=== PATIENT | female | born 1990 | race Caucasian/White ===

== ENCOUNTER 2016-09-24 16:39 | Emergency (ER) | payer OTHER ==
[~2016-09-24] VITALS: Ht 167.6 cm; Wt 103.0 kg
[~2016-09-24 16:39] MED LIST: GABA-113 PO; IBUP-1450 PO; ONDA4TAB4 PO; SPR28 PO
[2016-09-24 16:41] VITALS: TEMP 36.9; Ht 167.6 cm; Wt 103.0 kg
[2016-09-24] MEDS ORDERED: TRAZ100T29 PO (17:03)
[2016-09-24] MEDS ORDERED: ERGO500037 PO (17:03)
[2016-09-24] MEDS ORDERED: MOME100A INH (17:03)
[2016-09-24] MEDS ORDERED: OXYC-57 PO (17:03)
[2016-09-24] MEDS ORDERED: TAMS0.4C38 PO (17:03)
[2016-09-24] MEDS ORDERED: HYDR25CA PO (17:03)
[2016-09-24] MEDS ORDERED: MONT1TAB5 PO (17:03)
[2016-09-24] MEDS ORDERED: SERT-234 PO (17:03)
[2016-09-24] MEDS ORDERED: NAPR-1169 PO (17:03)
--- NOTE | 2016-09-24 17:03 | EMERGENCY ROOM VISIT NOTE ---
History Report prepared by Darwin: Oracio Vásquez Under the Supervision of: Dr. Jacoby Reyes M.D. First contact with patient: 16:46 Chief Complaint: KIDNEY STONE Stated Complaint: KIDNEY STONE AND FLUID IN LUNGS History of Present Illness The patient is a 26 year old female who presents to the Emergency Room with complaints of worsening right sided flank pain that radiates down to groin. She rates this pain an 8/10 in intensity. This pain started 4 days ago. The patient was evaluated in the [facility] ED when pain first started. She was found to have a 4 mm kidney stone at this time. The patient was evaluated by Dr. Campos ( Family Medicine) yesterday for persistent pain. A repeat CT scan was performed today which the patient states showed "1 mm increase in size of kidney stone." Upon review, the CT from [facility] today shows increasing small bilateral pleural effusion and unchanged appearance and position of distal right ureteral calculus. The patient mentions that she has been experiencing persistent shortness of breath which she believes is caused by her chronic asthma. The patient denies prior kidney stones. She adds that she was sent to the ED today for direct admission. Source of History: patient, other ([facility] ) Onset: 4 days ago Position: other (Right flank ) Symptom Intensity: 8/10 Timing: worsening Modifying Factors (Relieving): other (None) Associated Symptoms: + SOB Review of Systems All systems have been listed, reviewed, and are negative other than those previously mentioned. Please see Additional Medical History Sheet. Past Medical & Surgical Medical Problems: (1) Bronchitis (2) Pneumonia Surgical Problems: (1) S/P tonsillectomy Family History FH: diabetes mellitus FH: hypertension FH: kidney disease Social History Smoking Status: Never Smoker Smokeless Tobacco Use: No Alcohol Use: none Marital Status: Housing Status: lives with family Occupation Status: employed Current/Historical Medications Scheduled Ergocalciferol (Vitamin D 13377 Unit), 50,000 UNIT PO 2XWK Hydroxyzine Pamoate (Vistaril), 2 MG PO QID Montelukast Sodium (Montelukast Sodium), 10 MG PO DAILY Naproxen (Naprosyn), 500 MG PO BID Sertraline (Zoloft), 100 MG PO DAILY Tamsulosin Hcl (Flomax), 0.4 MG PO DAILY Trazodone Hcl (Trazodone), 150 MG PO HS Scheduled PRN Mometasone Furoate-Formoterol (Dulera 100/5 Mcg), 2 PUFFS INH BID PRN for SOB/ Wheezing Oxycodone/Acetaminophen 5MG/325MG (Percocet 5MG/325MG), 1 TABLET PO Q6H PRN for Pain Allergies Coded Allergies: Penicillins (Unverified Allergy, Intermediate, Swelling, 05/04/14) Uncoded Allergies: AMOX (Allergy, Severe, GI UPSET & SWELLING, 05/04/14) Physical Exam Vital Signs Date Time Temp Pulse Resp B/P Pulse Ox O2 Delivery O2 Flow Rate FiO2 09/24/16 20:13 81 16 118/68 98 09/24/16 16:41 36.9 86 16 120/74 96 Room Air Physical Exam GENERAL: Patient awake, alert, oriented x 3. Patient follows commands. Patient does not appear toxic. Patient is adequately hydrated and well- nourished. SKIN: No erythema, pallor, cyanosis or rash HEENT: Normal head, pupils equal, reactive to light and accommodation. LUNGS: Clear to auscultation. No wheezes, no rales, no rhonchi. HEART: No murmurs. No gallops. No rubs ABDOMEN: Obese. No masses, no rebound, no hepatomegaly or splenomegaly. BACK: Slight tenderness over right CVA area. EXTREMITIES: No signs of trauma or infection. NEUROLOGIC: Cranial nerves II-XII within normal limits. No gross motor sensory function deficits. Medical Decision & Procedures ER Provider Diagnostic Interpretation: [facility] CT abdomen + Pelvis with + without Contrast: Report: The liber, gallbladder, spleen, pancreas, and adrenal glands demonstrate no abnormality. No solid renal lesions identified. A 4 mm calculus seen at distal right ureter, just proximal to the ureterovesical junction, appears to be unchanged in position from the 09/20/2016 examination. Mild to moderate right hydronephrosis is unchanged. No left-sided calculi are observed. The urinary bladder and reproductive organs demonstrate no acute abnormality. Large and small bowel demonstrate no evidence of obstruction and no gross evidence of wall thickening. The appendix is unremarkable. No free intraperitoneal air or fluid is identified. Vascular structures demonstrate scattered atherosclerotic calcification, but are otherwise unremarkable. No abnormally enlarged intra-abdominal lymph nodes are identified. Osseous structures demonstrate no lytic or blastic lesion. No consolidation is identified at either lung base. There are small bilateral pleural effusions, increased from 09/20/2016. Impression: 1. Unchanged appearance and position of distal right ureteral calculus, as well as mild to moderate right hydronephrosis. 2. Increasing small bilateral pleural effusions. Dictated by: Raad Castellanos M.D. X ray results are stated below per my interpretation and the radiologist's interpretation. CHEST 2 VIEWS ROUTINE CLINICAL HISTORY: Bilateral pleural effusions seen on outside CT. COMPARISON STUDY: No previous studies for comparison. FINDINGS: There is no pneumothorax or pleural effusion. There is no evidence of pulmonary edema. Cardiac size is normal. No pneumothorax or pleural effusion is identified. IMPRESSION: No acute cardiopulmonary findings. No pleural effusions identified. Electronically signed by: Wilder Tierney M.D. 09/24/2016 6:44 PM Dictated Date/Time: 09/24/2016 6:43 PM KUB CLINICAL HISTORY: Right flank pain. Right kidney stone shown on outside CT. COMPARISON STUDY: CT of the abdomen and pelvis May 04, 2014. FINDINGS: Contrast within the collecting systems, ureters and bladder from recent contrast-enhanced CT. There is no left hydronephrosis. There is mild right hydronephrosis. No ureteral calculus is identified although sensitivity is diminished on this exam due to contrast. The right nephrogram is slightly delayed. Bowel gas pattern is normal. IMPRESSION: Mild right collecting system dilatation. No ureteral calculus identified although sensitivity diminished given contrast within the ureter from recent contrast-enhanced CT. Right nephrogram mildly delayed. Electronically signed by: Wilder Tierney M.D. 09/24/2016 6:46 PM Dictated Date/Time: 09/24/2016 6:45 PM Laboratory Results 09/24/16 17:50 Red Blood Count 4.58, Mean Corpuscular Volume 78.8, Mean Corpuscular Hemoglobin 25.8, Mean Corpuscular Hemoglobin Concent 32.7, Mean Platelet Volume 8.5, Neutrophils (%) (Auto) 57.5, Lymphocytes (%) (Auto) 34.5, Monocytes (%) (Auto) 5.8, Eosinophils (%) (Auto) 1.5, Basophils (%) (Auto) 0.4, Neutrophils # (Auto) 3.90, Lymphocytes # (Auto) 2.34, Monocytes # (Auto) 0.39, Eosinophils # (Auto) 0.10, Basophils # (Auto) 0.03 09/24/16 17:50 Test 09/24/16 17:50 White Blood Count 6.78 K/uL (4.8-10.8) Red Blood Count 4.58 M/uL (4.2-5.4) Hemoglobin 11.8 g/dL (12.0-16.0) Hematocrit 36.1 % (37-47) Mean Corpuscular Volume 78.8 fL (80-100) Mean Corpuscular Hemoglobin 25.8 pg (25-34) Mean Corpuscular Hemoglobin Concent 32.7 g/dl (32-36) Platelet Count 342 K/uL (130-400) Mean Platelet Volume 8.5 fL (7.4-10.4) Neutrophils (%) (Auto) 57.5 % Lymphocytes (%) (Auto) 34.5 % Monocytes (%) (Auto) 5.8 % Eosinophils (%) (Auto) 1.5 % Basophils (%) (Auto) 0.4 % Neutrophils # (Auto) 3.90 K/uL (1.4-6.5) Lymphocytes # (Auto) 2.34 K/uL (1.2-3.4) Monocytes # (Auto) 0.39 K/uL (0.11-0.59) Eosinophils # (Auto) 0.10 K/uL (0-0.5) Basophils # (Auto) 0.03 K/uL (0-0.2) RDW Standard Deviation 45.7 fL (36.4-46.3) RDW Coefficient of Variation 15.9 % (11.5-14.5) Immature Granulocyte % (Auto) 0.3 % Immature Granulocyte # (Auto) 0.02 K/uL (0.00-0.02) Urine Color YELLOW Urine Appearance CLEAR (CLEAR) Urine pH 7.0 (4.5-7.5) Urine Specific [place] > 1.045 (1.000-1.030) Urine Protein NEG (NEG) Urine Glucose (UA) NEG (NEG) Urine Ketones NEG (NEG) Urine Occult Blood TRACE (NEG) Urine Nitrite NEG (NEG) Urine Bilirubin NEG (NEG) Urine Urobilinogen NEG (NEG) Urine Leukocyte Esterase NEG (NEG) Urine WBC (Auto) 1-5 /hpf (0-5) Urine RBC (Auto) 5-10 /hpf (0-4) Urine Hyaline Casts (Auto) 0 /lpf (0-5) Urine Epithelial Cells (Auto) 20-30 /lpf (0-5) Urine Bacteria (Auto) NEG (NEG) Urine Test NEG (NEG) Anion Gap 5.0 mmol/L (3-11) Est Creatinine Clear Calc Drug Dose 109.7 ml/min Estimated GFR () 96.5 Estimated GFR (Non- 83.2 BUN/Creatinine Ratio 15.7 (10-20) Calcium Level 9.0 mg/dl (8.5-10.1) Laboratory results as stated above per my review. Medications Administered Medications (Trade) Dose Ordered Sig/Cassy Route Start Time Stop Time Status Last Admin Dose Admin Acetaminophen/ Hydrocodone Bitart ([place] 5/325 Tab) 1 tab ONE ONCE PO 09/24/16 20:00 09/24/16 20:01 DC 09/24/16 20:07 1 TAB Acetaminophen/ Hydrocodone Bitart ([place] 5/325mg Home Pack) 1 homepack UD ONCE PO 09/24/16 20:00 09/24/16 20:01 DC 09/24/16 20:07 1 HOMEPACK ED Course 1645: Past medical records reviewed. The patient was evaluated in room C9. A complete history and physical examination was performed. 1723: Discussed the patient's case with Dr. Davila (Urology). He is agreeable with the treatment plan. He requested a KUB and directing the patient to follow up in the office tomorrow. 2000: Ordered Acetaminophen/Hydrocodone Bitart 1 homepack PO, Acetaminophen/ Hydrocodone Bitart 1 tablet PO. 1950: Upon reevaluation, the patient appeared to have improvement of her symptoms. I discussed today's findings with the patient and her mother. They verbalized agreement of the treatment plan. She was discharged home. Medical Decision Nurses notes reviewed. Medical history sheet reviewed. Differential diagnosis includes but is not limited to: Ureteral calculus, bilateral pleural effusion, UTI, pyelonephritis, hydronephrosis. The patient was sent here from [place] with her CT revealing a stone and hydronephrosis. There is also bilateral small pleural effusions. The patient is having no respiratory symptoms. Blood work urinalysis and regular x-rays were performed here. Please see above. On chest x-ray she has no evidence of a pleural effusion. White count is normal. She does have some hematuria. KUB reveals slight dilatation of her kidney. I discussed care with Dr. Davila over the phone. The patient's to follow-up in the urology office tomorrow. The patient may require lithotripsy or some other intervention for removing the stone. I believe the patient is safe to return home tonight. Consults Time Called: 1703 Consulting Physician: Dr. Davila (Urology) Returned Call: 1723 Discussed the patient's case with Dr. Davila (Urology). He is agreeable with the treatment plan. He requested a KUB and directing the patient to follow up in the office tomorrow. Impression Primary Impression: Renal colic Additional Impression: Hydronephrosis Scribe Attestation The scribe's documentation has been prepared under my direction and personally reviewed by me in its entirety. I confirm that the note above accurately reflects all work, treatment, procedures, and medical decision making performed by me. Departure Information Dispostion Home / Self-Care Referrals Ashly Chand (PCP) Isaak Davila MD, Urology Forms HOME CARE DOCUMENTATION FORM, IMPORTANT VISIT INFORMATION Patient Instructions ED Stone Renal W Colic, My [facility] Additional Instructions Follow-up with Dr. Pool's office tomorrow at 1:15. One hydrocodone every 4 hours as needed for moderate to severe pain. 600 mg ibuprofen every 6 hours until pain resolves. Drink extra fluids. Problem Qualifiers
[2016-09-24 18:43] LABS: BASO % 0.4 %; BASO ABS # 0.03 K/uL (0-0.2); COMPLETE YES; EOS % 1.5 %; HEMATOCRIT 36.1 % (37-47); IG% 0.3 %; LYMPH % 34.5 %; LYMPH ABS # 2.34 K/uL (1.2-3.4); MEAN CELL VOLUME 78.8 fL (80-100); MEAN CORPUSCULAR HEMOGLOBIN 25.8 pg (25-34); MEAN CORPUSCULAR HGB CONC 32.7 g/dl (32-36); MEAN PLATELET VOLUME 8.5 fL (7.4-10.4); MONO % 5.8 %; NEUT % 57.5 %; PLATELET COUNT 342 K/uL (130-400); RED BLOOD COUNT 4.58 M/uL (4.2-5.4); WHITE BLOOD COUNT 6.78 K/uL (4.8-10.8)
--- NOTE | 2016-09-24 18:46 | DIAGNOSTIC IMAGING REPORT ---
CHEST 2 VIEWS ROUTINE CLINICAL HISTORY: Bilateral pleural effusions seen on outside CT. COMPARISON STUDY: No previous studies for comparison. FINDINGS: There is no pneumothorax or pleural effusion. There is no evidence of pulmonary edema. Cardiac size is normal. No pneumothorax or pleural effusion is identified. IMPRESSION: No acute cardiopulmonary findings. No pleural effusions identified. Electronically signed by: Wilder Tierney M.D. 09/24/2016 6:44 PM Dictated Date/Time: 09/24/2016 6:43 PM
[2016-09-24 18:47] LABS: URINE APPEARANCE CLEAR (CLEAR); URINE BILIRUBIN NEG (NEG); URINE COLOR YELLOW; URINE EPITHELIAL CELL AUTO 20-30 /lpf (0-5); URINE NITRITE NEG (NEG); URINE SPECIFIC GRAVITY > 1.045 (1.000-1.030); UROBILINOGEN NEG (NEG); ZZUR CULT IF INDIC CLEAN CATCH NO
[2016-09-24 18:48] LABS: MANUAL MICROSCOPIC REQUIRED? NO; REVIEW REQ? NO
--- NOTE | 2016-09-24 18:48 | DIAGNOSTIC IMAGING REPORT ---
KUB CLINICAL HISTORY: Right flank pain. Right kidney stone shown on outside CT. COMPARISON STUDY: CT of the abdomen and pelvis May 04, 2014. FINDINGS: Contrast within the collecting systems, ureters and bladder from recent contrast-enhanced CT. There is no left hydronephrosis. There is mild right hydronephrosis. No ureteral calculus is identified although sensitivity is diminished on this exam due to contrast. The right nephrogram is slightly delayed. Bowel gas pattern is normal. IMPRESSION: Mild right collecting system dilatation. No ureteral calculus identified although sensitivity diminished given contrast within the ureter from recent contrast-enhanced CT. Right nephrogram mildly delayed. Electronically signed by: Wilder Tierney M.D. 09/24/2016 6:46 PM Dictated Date/Time: 09/24/2016 6:45 PM
[2016-09-24 19:02] LABS: BUN/CREATININE RATIO 15.7 (10-20); CREATININE 0.95 mg/dl (0.60-1.20); POTASSIUM 4.3 mmol/L (3.5-5.1)
[2016-09-24] MEDS ORDERED: NORCO 5/325MG HOME PACK PO ONE (20:00)
[2016-09-24] MEDS ORDERED: HYDROCODONE/ACETAMOPHEN 5/325MG TAB PO ONE (20:00)
[2016-09-24 20:13] VITALS: BP 118/68; PULSE 81; O2SAT 98
== END 2016-09-24 20:14 | disposition home or self-care (01) ==
LOC: C.EDB 16:40 → C.EDC 20:14
DX: N23 Unspecified renal colic (principal); N13.30 Unspecified hydronephrosis; Z83.3 Family history of diabetes mellitus; Z82.49 Family history of ischemic heart disease and other diseases of the circulatory system

== ENCOUNTER → 2016-09-25 | Outpatient (CLI) | payer OTHER ==
[~2016-09-25] MED LIST changes: +ERGO500037 PO; +HYDR25CA PO; +MOME100A INH; +MONT1TAB5 PO; +NAPR-1169 PO; +OXYC-57 PO; +SERT-234 PO; +TAMS0.4C38 PO; +TRAZ100T29 PO
--- NOTE | 2016-09-25 14:57 | DIAGNOSTIC IMAGING REPORT ---
KUB CLINICAL HISTORY: Nephrolithiasis. COMPARISON STUDY: KUB September 24, 2016. FINDINGS: Note is made of a 5 mm irregular calcification within the right hemipelvis. This was obscured on prior exam due to contrast within the right ureter and bladder. There may be a small amount of residual contrast within the bladder. The contrast within the right collecting system is no longer visualized. Bowel gas pattern is normal. IMPRESSION: 5 mm irregular calcification within the right hemipelvis which could reflect a distal right ureteral calculus. Electronically signed by: Wilder Tierney M.D. 09/25/2016 2:55 PM Dictated Date/Time: 09/25/2016 2:53 PM
== END | disposition home or self-care (01) ==
LOC: C.LAB 14:25
PROVIDERS: ATTEND Urology
DX: N20.0 Calculus of kidney (principal)

== ENCOUNTER → 2017-05-28 | Outpatient (CLI) | payer OTHER ==
[~2017-05-28] MED LIST changes: -GABA-113 PO; -IBUP-1450 PO; +INSPMPHMLG; -NAPR-1169 PO; +NAPR-22 PO; +NVLNI SQ; -ONDA4TAB4 PO; +PRENTAB26 PO; -SPR28 PO
[2017-05-28 17:14] LABS: BASO % 0.1 %; BASO ABS # 0.01 K/uL (0-0.2); EOS % 0.6 %; EOS ABS # 0.05 K/uL (0-0.5); HEMATOCRIT 34.1 % (37-47); HEMOGLOBIN 11.4 g/dL (12.0-16.0); IG# 0.01 K/uL (0.00-0.02); LYMPH % 27.1 %; LYMPH ABS # 2.24 K/uL (1.2-3.4); MEAN CELL VOLUME 77.5 fL (80-100); MEAN CORPUSCULAR HEMOGLOBIN 25.9 pg (25-34); MEAN CORPUSCULAR HGB CONC 33.4 g/dl (32-36); MEAN PLATELET VOLUME 8.6 fL (7.4-10.4); MONO % 7.9 %; MONO ABS # 0.65 K/uL (0.11-0.59); NEUT % 64.2 %; NEUT ABS # 5.31 K/uL (1.4-6.5); PLATELET COUNT 324 K/uL (130-400); RED CELL DISTRIBUTION WIDTH CV 15.7 % (11.5-14.5); RED CELL DISTRIBUTION WIDTH SD 44.7 fL (36.4-46.3); WHITE BLOOD COUNT 8.27 K/uL (4.8-10.8)
== END | disposition home or self-care (01) ==
LOC: C.LAB1850 16:04
PROVIDERS: ATTEND Obstetrics & Gynecology
DX: O99.280 Endocrine, nutritional and metabolic diseases complicating pregnancy, unspecified trimester (principal); Z3A.00 Weeks of gestation of pregnancy not specified

== ENCOUNTER → 2017-05-28 | Outpatient (CLI) | payer OTHER | END | disposition home or self-care (01) | LOC: C.PAPS 09:19 | PROVIDERS: ATTEND Obstetrics & Gynecology | DX: Z34.01 Encounter for supervision of normal first pregnancy, first trimester (principal); Z3A.00 Weeks of gestation of pregnancy not specified ==

== ENCOUNTER → 2017-06-25 | Outpatient (CLI) | payer OTHER ==
[~2017-06-25] MED LIST changes: -INSPMPHMLG; +NAPR-1169 PO; -NAPR-22 PO; -NVLNI SQ; -PRENTAB26 PO
== END | disposition home or self-care (01) ==
LOC: C.LAB1850 16:20
PROVIDERS: ATTEND Obstetrics & Gynecology
DX: O99.280 Endocrine, nutritional and metabolic diseases complicating pregnancy, unspecified trimester (principal)

== ENCOUNTER → 2017-07-30 | Outpatient (CLI) | payer OTHER | END | disposition home or self-care (01) | LOC: C.LAB1850 15:49 | PROVIDERS: ATTEND Obstetrics & Gynecology | DX: O99.280 Endocrine, nutritional and metabolic diseases complicating pregnancy, unspecified trimester (principal); Z34.02 Encounter for supervision of normal first pregnancy, second trimester ==

== ENCOUNTER → 2017-08-15 | Outpatient (CLI) | payer OTHER | END | disposition home or self-care (01) | LOC: C.LAB1850 11:27 | PROVIDERS: ATTEND Obstetrics & Gynecology | DX: O28.1 Abnormal biochemical finding on antenatal screening of mother (principal) ==

== ENCOUNTER → 2017-08-19 | Outpatient (CLI) | payer OTHER | END | disposition home or self-care (01) | LOC: C.LAB1850 14:05 | PROVIDERS: ATTEND Obstetrics & Gynecology | DX: R30.9 Painful micturition, unspecified (principal); Z86.39 Personal history of other endocrine, nutritional and metabolic disease ==

== ENCOUNTER → 2017-10-14 | Outpatient (CLI) | payer OTHER | END | disposition home or self-care (01) | LOC: C.LAB1850 13:30 | PROVIDERS: ATTEND Obstetrics & Gynecology | DX: Z34.03 Encounter for supervision of normal first pregnancy, third trimester (principal); Z86.39 Personal history of other endocrine, nutritional and metabolic disease ==

== ENCOUNTER → 2017-10-18 | Outpatient (CLI) | payer OTHER ==
[2017-10-18 10:24] LABS: HEMATOCRIT 28.2 % (37-47); HEMOGLOBIN 9.2 g/dL (12.0-16.0)
== END | disposition home or self-care (01) ==
LOC: C.LAB1850 09:27
PROVIDERS: ATTEND Obstetrics & Gynecology
DX: Z34.03 Encounter for supervision of normal first pregnancy, third trimester (principal)

== ENCOUNTER 2020-07-07 07:53 | Inpatient (IN) ==
[2020-07-07] MEDS ORDERED: OXYTOCIN 30 UNITS/500 ML BAG IV PRN ×3 (08:06→13:23)
[2020-07-07 08:22] LABS: Hematocrit (blood only) 31.2 % (37-47); Hemoglobin 9.4 g/dL (12.0-16.0); Mean Corpuscular Hemoglobin 20.8 pg (25-34); Mean Corpuscular Hgb Conc 30.1 g/dL (32-36); Mean Platelet Volume 8.8 fL (7.4-10.4); Platelet Count 207 K/uL (130-400); RDW Coefficient of Variation 23.7 % (11.5-14.5); RDW Standard Deviation 58.5 fL (36.4-46.3); Red Blood Count 4.52 M/uL (4.2-5.4)
--- NOTE | 2020-07-07 08:40 | History & Physical Report ---
Date of Service July 07, 2020 Assessment & Plan (1) Gestational diabetes mellitus (GDM) affecting , antepartum: (2) Encounter for induction of labor: admit, iv, labs. bsg now and then q2hr in labor. fhts categ 1. start pitocin and plan arom. covid pending. Admission and Anticipated Discharge Date Admission Date: July 07, 2020 History of Present Illness Chief Complaint: planned induction Primary Care Provider: Al Joe 30yo at 39+wks ega presents to L&D for planned induction due to GDM. Patient has had elevated AC% through the and bsgs were monitored by endo. Insulin was never started but given findings on u/s was treated as insulin GDM during with plan for delivery by edc. No rom, no vb. +FM. Irreg ctx. PNC c/b 1. RH neg 2. GDM PNL RH neg, RI, GBS NEG OBH: at 36wks GYNH: nl paps, no stds. Allergies Allergy/AdvReac Type Severity Reaction Status Date / Time Penicillins Allergy Intermediate Swelling, Verified 07/07/20 08:17 hives amoxicillin Allergy GI upset, Verified 07/07/20 08:17 swelling Home Medications Medication Instructions Recorded Confirmed Type montelukast 10 mg tablet 10 mg PO DAILY tab 02/23/19 07/07/20 History sertraline 100 mg tablet 100 mg PO .take 2 tab daily #45 tab 11/23/19 07/07/20 History acetone (urine) test #50 ea 12/22/19 07/06/20 Rx blood sugar diagnostic #150 ea 12/22/19 07/06/20 Rx lancets 33 gauge #150 ea 12/22/19 07/06/20 Rx blood-glucose meter #1 ea 05/12/20 07/06/20 Rx [id number] 1 tab PO DAILY 06/17/20 07/07/20 History [] Patient History Medical History (Updated 07/07/20 @ 08:38 by Melany Harris MD, FACOG) History of chicken pox History of hypothyroidism History of kidney stones History of migraine History of ovarian cyst Surgical History H/O hand surgery S/P tonsillectomy S/P wisdom tooth extraction Family History (Updated 02/23/19 @ 13:54 by Suzette Salguero) Father Diabetes Hypertension Heart disease Dyslipidemia Mother Hypothyroidism Kidney stones Heart disease Hypertension Social History (Updated 11/23/19 @ 13:36 by Kathy Faith) Smoking Status: Never smoker Second Hand Exposure: No; Hx Alcohol Use: No Hx Substance Use: No Preferred Language: Slovak Communication Ability: Effective Beliefs That Will Affect Care: None marital status: marital status details: Nate (28) [phone] Current Living Situation: Spouse Current Living Situation Comment: and son current occupational status: employed 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 Other Information That Helps Us Care for You: No Feels Safe at Home: Yes Safety Concerns: Feels Safe At This Time Assistive Devices: None Review of Systems no fever Physical Exam Constitutional: WD/WN, vitals as above Respiratory: normal respiratory effort, lungs clear to auscultation Cardiovascular: Rate/Rhythm: regular rate and regular rhythm Gastrointestinal (Abdomen): soft gravid nt Musculoskeletal: no edema nontender calves Neurologic: grossly normal Psychiatric: A+Ox3, euthymic affect Genitourinary: OB Exam Abdomen: + vertex and + estimated weight (8-9#) Manual OB Exam: + cervical dilation 4 cm, + cervical effacement (75%) and + station -2 OB Exam Monitor Tracing: + external FHT monitor used (125 mod variability), + external uterine monitor used (q4), + category I and + normal FHT variability Results & Data ([facility]) Vital Signs (Past 12 Hours) Vital Signs Temp Pulse Resp BP 07/07/20 07:56 97.5 F L 20 07/07/20 07:46 90 120/81 Coding Level of Care Code None Diagnoses Gestational diabetes mellitus (GDM) affecting , antepartum O24.419 Encounter for induction of labor Z34.90
[2020-07-07] MEDS: LACTATED RINGER'S 1,000 ML IV PRN ×2 (09:20→10:58)
--- NOTE | 2020-07-07 10:08 | Labor Progress Brief Note ---
Date of Service July 07, 2020 Subjective Reason For Note: Routine Evaluation feeling some back pain Assessment & Plan (1) Encounter for induction of labor: (2) Gestational diabetes mellitus (GDM) affecting , antepartum: cont with pitocin, fhts categ 1. bsgs q2hr in active labor. Admission and Anticipated Discharge Date Admission Date: July 07, 2020 Physical Exam Constitutional: WD/WN, vitals as above Genitourinary: Manual OB Exam: + cervical dilation 4 cm, + cervical effacement (75%), + station -2 and + amniotic fluid (AROM) clear OB Exam Monitor Tracing: + external FHT monitor used (125 mod variability), + external uterine monitor used (irreg), + category I and + normal FHT variability pitocin started Results & Data ([facility]) Vital Signs (Past 12 Hours) Vital Signs Temp Pulse Resp BP 07/07/20 09:17 80 127/75 07/07/20 07:56 97.5 F L 20 07/07/20 07:46 90 120/81 Coding Level of Care Code None Diagnoses Encounter for induction of labor Z34.90 Gestational diabetes mellitus (GDM) affecting , antepartum O24.419
[2020-07-07] MEDS ORDERED: BUPIVACAINE 0.25% 30 ML VIAL ONE (10:25)
[2020-07-07] MEDS ORDERED: ePHEDrine sulfate 50 MG/ML AMP ONE (10:25)
[2020-07-07] MEDS ORDERED: SODIUM CHLORIDE 0.9% INJ 10 ML VIAL ONE (10:25)
[2020-07-07] MEDS ORDERED: fentaNYL citrate 100 MCG/2 ML VIAL ONE (10:26)
[2020-07-07] MEDS ORDERED: fentaNYL 2MCG/ML ROPIVACAINE 1.25MG/ML 100 ML BAG EPI ONE (10:26)
--- NOTE | 2020-07-07 11:26 | Anesthesiology Consultation ---
Date of Service July 07, 2020 Assessment & Plan Chart Review Chart Review: Acceptable Risk for Labor Epidural Consults Requested none History Height/Weight Height: 5 ft 6 in Weight: 90.9 kg Allergies Allergy/AdvReac Type Severity Reaction Status Date / Time Penicillins Allergy Intermediate Swelling, Verified 07/07/20 08:17 hives amoxicillin Allergy GI upset, Verified 07/07/20 08:17 swelling Medications Home Medications Medication Instructions Recorded Confirmed Last Taken montelukast 10 mg tablet 10 mg PO DAILY tab 02/23/19 07/07/20 07/05/20 20:00 sertraline 100 mg tablet 100 mg PO .take 2 tab daily #45 tab 11/23/19 07/07/20 07/04/20 20:00 acetone (urine) test #50 ea 12/22/19 07/06/20 Unknown blood sugar diagnostic #150 ea 12/22/19 07/06/20 Unknown lancets 33 gauge #150 ea 12/22/19 07/06/20 Unknown blood-glucose meter #1 ea 05/12/20 07/06/20 Unknown [id number] 1 tab PO DAILY 06/17/20 07/07/20 07/06/20 20:00 [] Active Medications Generic Name Dose Route Start Last Admin Trade Name Freq PRN Reason Stop Dose Admin Lactated Ringer's 1,000 mls @ 125 mls/hr 07/07/20 08:06 07/07/20 10:58 Lr IV 07/09/20 08:05 125 mls/hr .Q8H PRN Administration L&D Protocol Protocol Oxytocin 30 units in 500 mls @ 3 mls/hr 07/07/20 08:32 07/07/20 10:51 Pitocin IV 07/09/20 08:31 0.18 units/hr .Q24H PRN 3 mls/hr Labor Induction/Augmentation Titration Protocol 0.18 UNITS/HR Past Medical History Medical History History of chicken pox History of hypothyroidism History of kidney stones History of migraine History of ovarian cyst Past Family History Family History Father Diabetes Hypertension Heart disease Dyslipidemia Mother Hypothyroidism Kidney stones Heart disease Hypertension Past Surgical History Surgical History H/O hand surgery S/P tonsillectomy S/P wisdom tooth extraction Social History Smoking Status: Never smoker Hx Alcohol Use: No Hx Substance Use: No substance use type: does not use Physical Exam Vital Signs Last Vital Signs Temp 36.6 C 07/07/20 10:33 Pulse 77 07/07/20 11:24 Resp 20 07/07/20 10:33 BP 116/65 07/07/20 11:22 Pulse Ox 99 07/07/20 11:24 Testing Laboratory Results 07/07/20 08:11 07/07/20 07/07/20 10:02 08:10 POC Glucose 101 H 100 H
[2020-07-07] MEDS ORDERED: ePHEDrine sulfate 50 MG/ML AMP IV PRN (11:28)
[2020-07-07] MEDS ORDERED: NALOXONE HCL 1 MG in SODIUM CHLORIDE 0.9% 1000ML 1,000 ML IV PRN (11:28)
[2020-07-07] MEDS ORDERED: diphenhydrAMINE 50 MG/ML VIAL IV PRN (11:28)
[2020-07-07] MEDS ORDERED: NALOXONE HCL 0.4 MG/1 ML VIAL/CARP IV PRN (11:28)
[2020-07-07] MEDS ORDERED: fentaNYL 2MCG/ML ROPIVACAINE 1.25MG/ML 100 ML BAG EPI PRN (11:28)
[2020-07-07] MEDS ORDERED: oxyCODONE/ACETAMINOPHEN 5mg/325mg TAB PO PRN (13:23)
[2020-07-07] MEDS ORDERED: ACETAMINOPHEN 325 MG TAB PO PRN (13:23)
[2020-07-07] MEDS ORDERED: IRON SUCROSE 300 MG in SODIUM CHLORIDE 0.9% 250 ML IV ONE (13:24)
[2020-07-07] MEDS ORDERED: OXYTOCIN 20 UNITS in LACTATED RINGER'S 1,000 ML IV SCH (13:30)
--- NOTE | 2020-07-07 13:34 | Delivery Summary ---
Vaginal Delivery Summary Date of Service July 07, 2020 Vaginal Delivery Summary VAVD and 2nd Degree LAC The patient dilated to complete and began 2nd stage. Called to delivery by nursing and patient pushing effectively but fhts 50s, c/c/+3. Recommended outlet vacuum and informed consent obtained due to bradycardia. Kiwi applied and one pull attempted with one pop off. Cephalic and with perineum tearing the cephalic able to be delivered with Ritgen's maneuver, ROP. Nuchal x 1 noted and reduced and mouth and nose bulb suctioned at perineum. Shoulders and body delivered with ease. Infant was vigorous and crying at . Cord clamped at 30 seconds of life and to maternal abdomen where the cord was then doubly clamped and cut. Placenta delivered spontaneously and intact, three-vessel cord. Hemostasis achieved with dilute pitocin and uterine massage and drainage of the bladder for approximately 200 cc under sterile conditions. Laceration noted to be 2nd degree and repaired in usual fashion with 3-0 vicryl. Cervix and sulci intact. EBL 300 cc. Mother and baby stable recovery. [facility] [place] Vaginal Delivery Charge Delivery Type Details: VAVD and 2nd Degree LAC
[2020-07-07] MEDS ORDERED: DIPHTHERIA/TETANUS/PERTUSSIS 0.5 ML SYR/VIAL IM ONE (13:48)
[2020-07-07] MEDS ORDERED: HYDROCORTISONE ACETATE 25 MG SUPP PR PRN (13:48)
[2020-07-07] MEDS ORDERED: BENZOCAINE 20% AER SPR 82.5 GM CAN EXT PRN (13:48)
[2020-07-07] MEDS ORDERED: SUPERCREAM 0.870% 15 GM JAR EXT PRN (13:48)
[2020-07-07] MEDS: IBUPROFEN 600 MG TAB PO PRN ×2 (15:51→20:11)
[2020-07-07] MEDS: SERTRALINE HCL 100 MG TABLET PO SCH (15:53)
--- NOTE | 2020-07-07 16:33 | Anesthesia Procedure Note ---
Date of Service July 07, 2020 Anesthesia Post Epidural Note Vital Signs Vital Signs: Temp Pulse Resp BP Pulse Ox 36.6 C 89 18 133/88 100 07/07/20 10:33 07/07/20 15:47 07/07/20 15:12 07/07/20 15:47 07/07/20 12:59 Pain Intensity Bilateral Abdomen: Pain Intensity: 0 Notes Mental Status: alert / awake / arousable and participated in evaluation Nausea / Vomiting: adequately controlled Pain: adequately controlled Airway Patency, RR, SpO2: stable & adequate BP & HR: stable & adequate Hydration State: stable & adequate Neuraxial Anesthesia: was administered and sensory block is resolving Anesthetic Complications: no major complications apparent and Pt Satisfied with anesthetic care Epidural: Removed without complications and With tip intact
[2020-07-07] MEDS: DOCUSATE SODIUM 100 MG CAP PO SCH (20:11)
[2020-07-08] MEDS: IBUPROFEN 600 MG TAB PO PRN (04:14)
[2020-07-08 06:16] LABS: Hematocrit (blood only) 30.4 % (37-47); Hemoglobin 9.1 g/dL (12.0-16.0)
--- NOTE | 2020-07-08 07:01 | Obstetrical Progress Note ---
Date of Service <Angelica Braxton DO - Last Filed: 07/08/20 07:01> July 08, 2020 Assessment & Plan <Angelica Braxton DO - Last Filed: 07/08/20 07:01> (1) state: PPD #1 - PNL: Rh NEGATIVE, RI, GBS neg, COVID neg --- Plan for Rhogam prior to d/c if baby is Rh + - Hgb/Hct is 9.1/30.4 today. --- Patient w/ hx of anemia in . She is already scheduled for iron infusion today at 1300 - Feels well today. Eating well, voiding well, ambulating well. - Pain well controlled with ibuprofen 600mg Q4H PRN - Routine care -- OOB, ambulation, diet progression as tolerated - After discharge will have 6 week follow-up with Dr. Harris. - Patient requesting discharge home today. Subjective <Angelica Braxton DO - Last Filed: 07/08/20 07:01> Trish Madrid is a 30 y/o female who is PPD #1 following spontaneous vaginal delivery after IOL at 39 +4 weeks. She reports feeling well overall this morning. Mild abdominal cramping/back pain and 6/10 pain well managed on analgesics. Voiding without dysuria. Tolerating meals overnight without difficulty. Patient has been able to ambulate some; she has no concerns of dizziness or lightheadedness with ambulation. She is passing gas. Has persistent lochia with some improvement this morning. Currently bottle feeding. Review of Systems Denies fever or chills. Denies shortness of breath or cough. Denies chest pain. Denies breast pain. Denies dysuria. Denies leg pain or leg swelling. Denies headache or changes in vision. Physical Exam <Angelica Braxton DO - Last Filed: 07/08/20 07:01> General: Alert, oriented. No acute distress. Cardiac: Regular rate and rhythm. 2/6 KHUSHI. Respiratory: Clear to auscultation bilaterally a/p, no wheezes/rales/rhonchi. No increased work of breathing. Symmetrical chest rise. No respiratory distress. Abdomen: Soft, nontender, nondistended. Bowel sounds present. Uterus: Uterine fundus firm, palpable at umbilicus. Lower Extremities: No lower extremity edema or swelling. No deep calf pain. Delaney's negative bilaterally. Results & Data ([facility]) <Angelica Braxton, - Last Filed: 07/08/20 07:01> Vital Signs (Past 12 Hours) Vital Signs Temp Pulse Resp BP Pulse Ox 07/08/20 04:10 37.1 C 77 16 132/70 98 07/07/20 20:05 36.9 C 75 18 124/70 97 Laboratory Results 07/08/20 07/08/20 07/07/20 Range/Units 05:59 05:59 11:55 WBC (4.8-10.8) K/uL RBC (4.2-5.4) M/uL Hgb 9.1 L (12.0-16.0) g/dL Hct 30.4 L (37-47) % MCV (80-100) fL MCH (25-34) pg MCHC (32-36) g/dL RDW Std Deviation (36.4-46.3) fL RDW Coeff of Vamsi (11.5-14.5) % Plt Count (130-400) K/uL MPV (7.4-10.4) fL POC Glucose 89 (70-99) mg/dl COVID-19 Eval Order SARS-CoV-2, RNA, NAAT (NEGATIVE) Blood Type Pending Antibody Screen Pending Screen Pending 07/07/20 07/07/20 07/07/20 Range/Units 10:02 08:11 08:10 WBC 7.00 (4.8-10.8) K/uL RBC 4.52 (4.2-5.4) M/uL Hgb 9.4 L (12.0-16.0) g/dL Hct 31.2 L (37-47) % MCV 69.0 L (80-100) fL MCH 20.8 L (25-34) pg MCHC 30.1 L (32-36) g/dL RDW Std Deviation 58.5 H (36.4-46.3) fL RDW Coeff of Vamsi 23.7 H (11.5-14.5) % Plt Count 207 (130-400) K/uL MPV 8.8 (7.4-10.4) fL POC Glucose 101 H 100 H (70-99) mg/dl COVID-19 Eval Order SARS-CoV-2, RNA, NAAT (NEGATIVE) Blood Type Antibody Screen Screen 07/07/20 07/07/20 Range/Units 08:05 08:05 WBC (4.8-10.8) K/uL RBC (4.2-5.4) M/uL Hgb (12.0-16.0) g/dL Hct (37-47) % MCV (80-100) fL MCH (25-34) pg MCHC (32-36) g/dL RDW Std Deviation (36.4-46.3) fL RDW Coeff of Vamsi (11.5-14.5) % Plt Count (130-400) K/uL MPV (7.4-10.4) fL POC Glucose (70-99) mg/dl COVID-19 Eval [facility] SARS-CoV-2, RNA, NAAT NEGATIVE (NEGATIVE) Blood Type Antibody Screen Screen <Trish Borjas MD - Last Filed: 07/08/20 07:14> Co-Signing Physician Notes Resident Physician Supervision Note: I interviewed and examined the patient. Discussed with Dr. Braxton and agree with findings and plan as documented in the note. Any exceptions or clarifications are listed here: None Documented By: Trish Borjas MD, FACOG Resident Activity Tracking <Angelica Braxton DO - Last Filed: 07/08/20 07:01> Resident Involvement: Resident Care Provided Care Provided: OB Delivery
[2020-07-08] MEDS ORDERED: MONTELUKAST SODIUM 10 MG TABLET PO SCH (09:00)
[2020-07-08] MEDS: SERTRALINE HCL 100 MG TABLET PO SCH (09:04)
[2020-07-08] MEDS: DOCUSATE SODIUM 100 MG CAP PO SCH (09:04)
--- NOTE | 2020-07-08 10:40 | Discharge Summary ---
Date of Service Day of admission: July 07, 2020 Day of discharge: July 08, 2020 Admission HPI Per Admitting Provider 30yo at 39+wks sunday presents to L&D for planned induction due to GDM. Patient has had elevated AC% through the and bsgs were monitored by endo. Insulin was never started but given findings on u/s was treated as insulin GDM during with plan for delivery by edc. No rom, no vb. +FM. Irreg ctx. PNC c/b 1. RH neg 2. GDM PNL RH neg, RI, GBS NEG OBH: at 36wks GYNH: nl paps, no stds. Discharge Data Consultations 07/07/20 08:06 Consult Anesthesiology Stat Hospital Course (1) Encounter for induction of labor: (2) Gestational diabetes mellitus (GDM) affecting , antepartum: (3) Rh negative state in antepartum period: Patient underwents induction with pitocin and arom. She received epidural. During her pushing stage, vacuum assistance was used when cephalic due to bradycardia. This was one pull with one pop off over part of one contraction. Vaginal delivery ensued. course was uncomplicated. Patient received iron infusion prior to discharge which was completing her already planned course per hematology. She did receive rhophylac as well. She had hemoglobin checked. Routine discharge instructions reviewed and given. Followup 6 weeks check planned. Coding Level of Care Code None Diagnoses Encounter for induction of labor Z34.90 Gestational diabetes mellitus (GDM) affecting , antepartum O24.419 Rh negative state in antepartum period O09.899; Z67.91
[2020-07-08] MEDS ORDERED: IRON SUCROSE 300 MG in SODIUM CHLORIDE 0.9% 250 ML IV ONE (13:00)
== END 2020-07-08 15:58 | disposition home or self-care (01) | DRG 807 ==
LOC: 4S1 07:53 → 4S2 16:05